=== PATIENT | male | born 1990 | race Caucasian/White ===

== ENCOUNTER 2016-09-28 15:46 | Emergency (ER) | payer OTHER ==
[2016-09-28 16:19] VITALS: BP 129/78
[2016-09-28] MEDS ORDERED: Ketorolac INJ* 60 MG/2 ML VIAL IM ONE (16:35)
[2016-09-28] MEDS ORDERED: Cyclobenzaprine TAB* 10 MG PO ONE (16:35)
--- NOTE | 2016-09-28 17:14 | ED ---
Back Pain - HPI Summary HPI Summary: Patient presents with right lower back pain that began 3 days ago after shoveling 6 days ago. His pain started Wednesday and the next day was he felt it was too painful to stand to walk. He has tried resting and Tylenol without relief. He had a similar episode in April on the left side after shoveling that improved with rest and massage. [place] [facility] [place]. No N/T, incontinence of urine or stool and he has strength to walk. His pain is improved with his hips flexed. 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 Onset/Duration: Gradual Onset Onset/Duration: Started Days Ago, Traumatic - shoveling, Still Present Timing: Constant Back Pain Location: Is Discrete @ - right low back Severity Initially: Mild Severity Currently: Severe Pain Intensity: 9 Character: Dull, Aching, Spasmodic Aggravating Symptom(s): Movement Alleviating Symptom(s): Nothing Associated Signs And Symptoms: Positive: Pain with Weight Bearing Related History: Similar Episode Dx As - Apr 2016 - Allergies/Home Medications Allergies/Adverse Reactions: Allergies Allergy/AdvReac Type Severity Reaction Status Date / Time No Known Allergies Allergy Verified 04/25/16 23:33 PMH/Surg Hx/FS Hx/Imm Hx Previously Healthy: Yes - Immunization History Date of Tetanus Vaccine: UTD Date of Influenza Vaccine: never Infectious Disease History: No Infectious Disease History: Denies: Traveled Outside the [place] in Last 30 Days - Family History Known Family History: Positive: Hypertension - Father, Diabetes Negative: Cardiac Disease - Social History Occupation: Employed Full-time Lives: With Family Alcohol Use: Daily Alcohol Amount: 2-3 Substance Use Type: Reports: Marijuana Smoking Status (MU): Light Every Day Tobacco Smoker Cessation Counseling: Patient Advised to Stop Review of Systems Negative: Fever Negative: Chest Pain Negative: Shortness Of Breath Positive: Myalgia - right low back. Negative: Decreased ROM, Edema Negative: Bruising Negative: Headache, Weakness, Paresthesia, Numbness All Other Systems Reviewed And Are Negative: Yes Physical Exam Triage Information Reviewed: Yes Vital Signs On Initial Exam: Initial Vitals Temp Pulse Resp BP Pulse Ox 98.3 F 53 18 129/78 99 09/28/16 16:03 09/28/16 16:03 09/28/16 16:03 09/28/16 16:03 09/28/16 16:03 Vital Signs Reviewed: Yes Appearance: Positive: Well-Appearing, Well-Nourished, Pain Distress Skin: Positive: Warm, Skin Color Reflects Adequate Perfusion, Dry, Soft Head/Face: Positive: Normal Head/Face Inspection Eyes: Positive: EOMI, KALA, Conjunctiva Clear ENT: Positive: Hearing grossly normal Neck: Positive: Supple, Nontender Respiratory/Lung Sounds: Positive: Breath Sounds Present Cardiovascular: Positive: Bradycardia Abdomen Description: Positive: Nontender, Soft Musculoskeletal: Positive: Limited @ - +SLR on left with corresponding right low back pain, Pain @ - TTP right SI joint and lumbar spine. Negative: Adina Sign Left, Adina Sign Right Neurological: Positive: Sensory/Motor Intact, Alert, Oriented to Person Place, Time, Reflexes Intact, NV Bundle Intact Distally, Abnormal Gait Psychiatric: Positive: Affect/Mood Appropriate AVPU Assessment: Alert Diagnostics - Vital Signs Vital Signs Temp Pulse Resp BP Pulse Ox 09/28/16 16:03 98.3 F 53 18 129/78 99 - Laboratory Lab Statement: Any lab studies that have been ordered have been reviewed, and results considered in the medical decision making process. Back Pain Course/Dx - Course Course Of Treatment: Patient does not have a primary care provider, so we discussed his going to physical therapy, since he seems to have mechanical issues that bring on these episodes when he shovels. He will use the medication provided and rest. - Diagnoses Differential Diagnosis/HQI/PQRI: Positive: Aneurysm, Arthritis, Cauda Equina Syndrome, Compressive Cord Syndrome, Herniated Disc, Strain, Sprain Provider Diagnoses: Right low back pain Discharge - Discharge Plan Condition: Stable Disposition: HOME Prescriptions: Cyclobenzaprine TAB* [Flexeril 10 MG TAB*] 10 mg PO TID PRN #30 tab PRN Reason: muscle spasm Patient Education Materials: Low Back Strain (ED), Lower Back Exercises (ED) Referrals: [facility] [place] [facility]FERRAL [Outside] Additional Instructions: Please use the medication provided and rest your back for the next 2-3 days. You can find a local physical therapist to work with online, but check with your insurance to see how many sessions are covered. Return to the emergency department if your symptoms worsen.
== END 2016-09-28 18:11 | disposition home or self-care (01) ==
LOC: ED 15:46
DX: M54.5 Low back pain (principal); F17.210 Nicotine dependence, cigarettes, uncomplicated
CPT/HCPCS: 96372; 99281; A9270-GY; J1885